=== PATIENT | female | born 1985 | race Caucasian/White ===

== ENCOUNTER 2018-02-28 19:26 | Emergency (ER) | payer MEDICAID, OTHER ==
--- NOTE | 2018-02-28 20:35 | ED PDOC ---
Syncope/Near Syncope/Dizziness Time Seen by Provider: 02/28/18 20:19 Chief Complaint (Nursing): Dizziness/Lightheaded Chief Complaint (Provider): dizziness History Per: Patient History/Exam Limitations: no limitations Onset/Duration Of Symptoms: Hrs (2) Current Symptoms Are (Timing): Still Present Activity At Onset Of Symptoms: Standing, Walking Additional Complaint(s): 32 y/o female presents for evaluation of dizziness x 2 hours. Patient states she was out [id number] and started to develop a headache. States headache worsened and she suddenly felt dizzy, lightheaded and weak as if she was going to pass out. Patient states she then fell to her knees and leaned on a car but did not lose consciousness. Patient complaining of headache with photophobia upon arrival and low back pain that is consistent with her history of slipped disc in her lspine. Denies vision changes, extremity numbness/weakness, nausea/vomiting, neck stiffness, cough, congestion, chest pain, shortness of breath, palpitations, abdominal pain, changes in bowel movements, urinary symptoms. Patient found to be febrile upon arrival, unaware she had fever. 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 Past Medical History Reviewed: Historical Data, Nursing Documentation, Vital Signs Vital Signs: Last Vital Signs Temp 102.4 F H 02/28/18 20:11 Pulse 122 H 02/28/18 20:11 Resp 17 02/28/18 20:11 BP 109/68 02/28/18 20:11 Pulse Ox 99 02/28/18 20:11 - Medical History PMH: Back Problems - Surgical History Surgical History: - Family History Family History: States: No Known Family Hx - Living Arrangements Living Arrangements: With Family - Home Medications Home Medications: Ambulatory Orders Medication Instructions Recorded Cyclobenzaprine [Cyclobenzaprine 10 mg PO BID PRN #14 tab 02/28/18 HCl] Ibuprofen [Motrin Tab] 1 tab PO Q6 PRN #20 tab 02/28/18 - Allergies Allergies/Adverse Reactions: Allergies Allergy/AdvReac Type Severity Reaction Status Date / Time shellfish derived Allergy ANAPHYLAXIS Verified 02/28/18 20:16 control pills Allergy RASH Uncoded 02/28/18 20:16 Review of Systems ROS Statement: Except As Marked, All Systems Reviewed And Found Negative Constitutional: Positive for: Fever Neurological: Positive for: Headache Physical Exam - Reviewed Nursing Documentation Reviewed: Yes Vital Signs Reviewed: Yes - Physical Exam Appears: Positive for: Well, Non-toxic, No Acute Distress Head Exam: Positive for: ATRAUMATIC, NORMAL INSPECTION, NORMOCEPHALIC Skin: Positive for: Normal Color Eye Exam: Positive for: Normal appearance, EOMI, PERRL ENT: Positive for: Normal ENT Inspection Neck: Positive for: Normal, Painless ROM Cardiovascular/Chest: Positive for: Regular Rate, Rhythm Respiratory: Positive for: Normal Breath Sounds Gastrointestinal/Abdominal: Positive for: Normal Exam Back: Positive for: Normal Inspection Extremity: Positive for: Normal ROM Neurologic/Psych: Positive for: Alert, Oriented (x3) - Laboratory Results Result Diagrams: 02/28/18 21:08 02/28/18 21:08 - ECG ECG: Positive for: Viewed By Me (reviewed by ED attending) ECG Rhythm: Positive for: Sinus Tachycardia O2 Sat by Pulse Oximetry: 99 - Progress ED Course And Treament: Patient refusing IV; states she does not like it in her arm and she never feels better after it. States she will hydrate orally labs, urine, flu, strep, ekg, PO tylenol ordered On re-eval, patient states she is feeling better. Has been drinking fluids since arrival Patient educated on findings, discharged with rx ibuprofen, flexeril Advised fluids, rest Follow up PMD within 2-3 days Return precautions given Patient demonstrates full understanding of discharge instructions Patient requires no further intervention in the ED and is stable for discharge at this time Disposition - Clinical Impression Clinical Impression: Fever, Near syncope, Headache - Patient ED Disposition Is Patient to be Admitted: No Counseled Patient/Family Regarding: Studies Performed, Diagnosis, Need For Followup, Rx Given - Disposition Disposition: Routine/Home Disposition Time: 22:59 Condition: IMPROVED Additional Instructions: Follow up with your primary doctor in 2-3 days Drink plenty of fluids. Rest Take medications as directed, as needed Return to ED for worsening/concerning symptoms Prescriptions: Cyclobenzaprine [Cyclobenzaprine HCl] 10 mg PO BID PRN #14 tab PRN Reason: Muscle Spasm Ibuprofen [Motrin Tab] 1 tab PO Q6 PRN #20 tab PRN Reason: Fever >100.4 F Instructions: Headache, Adult, Fever, Adult (DC), Near Fainting Forms: [facility] ([place]ese), [facility] ED School/Work Excuse
[2018-02-28 21:19] LABS: BASO % 0.1 % (0.0-2.0); EOS % 0.2 % (0.0-4.0); HEMOGLOBIN 13.5 g/dL (12.0-16.0); LYMPH # 0.8 K/uL (1.0-4.3); LYMPH % 4.9 % (20.0-40.0); MEAN CELL VOLUME 89.8 fl (81.0-99.0); MEAN CORPUSCULAR HEMOGLOBIN 29.7 pg (27.0-31.0); MEAN PLATELET VOLUME 8.3 fl (7.2-11.7); MONO # 0.5 K/uL (0.0-0.8); MONO % 3.3 % (0.0-10.0); NEUT % 91.5 % (50.0-75.0); PLATELET COUNT 285 K/uL (130-400); RBC 4.56 Mil/uL (3.80-5.20); RED CELL DISTRIBUTION WIDTH 13.6 % (11.5-14.5); WHITE BLOOD COUNT 15.3 K/uL (4.8-10.8)
[2018-02-28 21:40] LABS: ALB/GLOB RATIO 1.2 (1.0-2.1); ALBUMIN 4.1 g/dL (3.5-5.0); ALT/SGPT 26 U/L (9-52); AST/SGOT 24 U/L (14-36); BLOOD UREA NITROGEN 11 mg/dl (7-17); GFR NON-AFRICAN AMERICAN > 60
[2018-02-28 21:49] LABS: SQUAMOUS EPITHIAL < 1 /hpf (0-5); URINE BILIRUBIN NEGATIVE (NEGATIVE); URINE BLOOD NEGATIVE (NEGATIVE); URINE CLARITY CLEAR (Clear); URINE COLOR STRAW (YELLOW); URINE GLUCOSE (UA) NEG (Normal); URINE LEUKOCYTE ESTERASE NEG Leu/uL (Negative); URINE PROTEIN NEGATIVE (NEGATIVE); URINE UROBILINOGEN 0.2-1.0 mg/dL (0.2-1.0)
[2018-02-28 22:21] LABS: BANDS 4 % (0-2); LYMPHOCYTE 9 % (20-50); MONOCYTE 4 % (0-10); NEUTROPHIL 83 % (42-75); PLATELET ESTIMATE NORMAL (NORMAL); TOTAL CELLS COUNTED 100
[2018-02-28 22:22] LABS: HYPOCHROMIC SLIGHT
[2018-02-28 22:29] VITALS: BP 103/54; PULSE 100; RESP 16; TEMP 98.1
[2018-02-28 23:44] VITALS: O2SAT 97
--- NOTE | 2018-03-01 06:50 | CARD ---
APPROVED REPORT Date of service: 02/28/2018 EKG Measurement Heart [id number] <Conclusion> Sinus tachycardia Otherwise normal ECG
== END 2018-02-28 23:21 | disposition home or self-care (01) ==
LOC: H.ER 19:26
DX: R50.9 Fever, unspecified (principal); R55 Syncope and collapse; R51 Headache